=== PATIENT | male | born 1995 | race Caucasian/White ===

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

== ENCOUNTER 2017-04-24 01:14 | Emergency (ER) | payer BC ==
[2017-04-24] MEDS ORDERED: Pantoprazole 40 MG VIAL ONE (01:37)
[2017-04-24] MEDS ORDERED: Lidocaine Viscous Sol 2% 15 ml UD Cup ONE (01:38)
[2017-04-24] MEDS ORDERED: Milk Of Magnesia 30 ML UDCUP ONE (01:38)
[2017-04-24 01:43] LABS: Bilirubin Negative (Negative); Blood, Urine Trace (Negative); Clarity Clear (Clear); Glucose, Urine (Dipstick) 100 mg/dL (Negative); Leukocyte Negative (Negative); Nitrite Negative (Negative); Protein, Urine (Dipstick) Trace mg/dL (Neg-Trace); Specific Gravity, Urine 1.025 (1.005-1.030); Urobilinogen 0.2 mg/dL (0.2-1.0)
[2017-04-24] MEDS ORDERED: Morphine 4 MG/ML Carpuject ONE ×3 (01:51→03:29)
[2017-04-24 01:52] LABS: Hemoglobin 17.9 g/dL (14.0-18.0); Mean Corpuscular HGB CONC 33.9 g/dL (32.0-36.0); Mean Corpuscular Volume 85.4 fl (77.0-87.0); Mean Platelet Volume 6.7 fL (7.4-10.4); Platelet Count 366 thou/uL (130-400); RBC Distribution Width 11.4 % (11.5-14.5); Red Blood Cell (RBC) Count 6.17 mill/uL (4.00-5.20); White Blood Cell (WBC) Count 22.5 thou/uL (4.8-10.8)
[2017-04-24] MEDS ORDERED: diphenhydrAMINE 50 MG/ML VIAL ONE (01:52)
[2017-04-24 01:56] LABS: ALT (SGPT) 57 U/L (8-55); AST (SGOT) 26 U/L (5-34); Albumin 4.5 g/dL (3.5-5.0); Alkaline Phosphatase 78 U/L (Less than 750); Anion Gap 15 mmol/L (10-20); BUN (Urea Nitrogen) 14 mg/dL (8.9-20.6); Bilirubin, Total 0.5 mg/dL (0.2-1.2); Calc. Creatinine Clearance 0 mL/min (70-130); Calcium 9.5 mg/dL (7.8-10.44); Carbon Dioxide 21 mmol/L (22-29); Chloride 106 mmol/L (98-107); Estimated GFR-MDRD Greater than 90; Globulin 3.3 g/dL (2.4-3.5); Glucose 189 mg/dL (70-105); Lipase 10 U/L (8-78); Potassium 4.1 mmol/L (3.5-5.1); Protein, Total 7.8 g/dL (6.0-8.3); Sodium 138 mmol/L (136-145)
[2017-04-24 01:56] LABS: RBC/HPF 0-3 HPF (0-3); Squamous Epithelial 0-3 HPF (0-3); WBC/HPF 0-3 HPF (0-3)
[2017-04-24 01:57] LABS: Bacteria/HPF Rare-Few HPF (None Seen); Other Microscopic Description 1+ MUCUS
[2017-04-24 02:07] LABS: Band 2 % (5-11); Lymphocytes 5 % (28-48); MDiff Complete? YES; Monocytes 4 % (0-4); Neutrophil 89 % (31-61); PLT Morphology Comment Appears Adequate; RBC Morphology Normal
--- NOTE | 2017-04-24 07:40 | CT ---
PRELIMINARY REPORT/[facility]/EMERGENCY AFTER HOURS PROCEDURE: EXAM: CT Abdomen and Pelvis With Intravenous Contrast EXAM DATE/TIME: Exam ordered 04/24/2017 2:39 AM CLINICAL HISTORY: 22 years old, male; Pain; Abdominal pain; Epigastric; Patient HX: Pt presents to the er for abdominal pain; Pt had oral surgery today. Was home eating post-op and took pain medication. States sudden ons et of severe abdominal pain bilat upper quad. ; Additional info: Iv contrast only per er md TECHNIQUE: Axial computed tomography images of the abdomen and pelvis with intravenous contrast. All CT scans at this facility use one or more dose reduction techniques, viz.: automated exposure control; ma/kV adj ustment per patient size (including targeted exams where dose is matched to indication; i.e. head); o r iterative reconstruction technique. Coronal reformatted images were created and reviewed. CONTRAST: 100 mL of ISOVUE 370 administered intravenously. COMPARISON: No relevant prior studies available. FINDINGS: Lower thorax: No acute findings. ABDOMEN: Liver: No pneumatosis or portal/mesenteric venous gas. Gallbladder and bile ducts: Unremarkable. No calcified stones. No ductal dilation. Pancreas: Unremarkable. No mass. No ductal dilation. Spleen: Unremarkable. No splenomegaly. Adrenals: Unremarkable. No mass. Kidneys and ureters: Unremarkable. No solid mass. No hydronephrosis. Stomach and bowel: High-grade mid small bowel obstruction with transition point in the central abdome n, presumably secondary to adhesion. No bowel wall thickening. Appendix: Normal appendix. PELVIS: Bladder: Unremarkable. No mass. Reproductive: Unremarkable as visualized. ABDOMEN and PELVIS: Intraperitoneal space: No pneumoperitoneum or abscess. No significant fluid collection. Bones/joints: No acute fracture. No dislocation. Soft tissues: Unremarkable. Vasculature: SMV and SMA are patent as far as can be traced. Lymph nodes: Unremarkable. No enlarged lymph nodes. IMPRESSION: High-grade mid small bowel obstruction with transition point in the central abdomen, presumably secon jose armando to adhesion. Thank you for allowing us to participate in the care of your patient. Dictated and Authenticated by: Lionel Trivedi MD 04/24/2017 3:05 AM Central Time ([place] & [place]) FINAL REPORT CT ABDOMEN AND PELVIS WITH CONTRAST: DATE: 04/24/17. FINDINGS: Spiral CT of the abdomen and pelvis was performed for evaluation of severe abdominal pain. Axial slic es were acquired after giving IV contrast. Oral contrast was withheld by request. Coronal reconstru ctions were done. The main finding on the study was a stomach full of fluid and dilated loops of small bowel to the mid small bowel level. Some loops are as wide as 4 cm. There is a transition point in the mid abdomen, after which small bowel and large bowel are normal in size. The findings are consistent with a mid small bowel obstruction. No dramatic thickening of the bowel loops was seen. There is no free air or free fluid. The lung bases are clear. The spleen is a little generous in size measuring just over 15 cm in lengt h. The liver appears normal as does the pancreas, adrenal glands, kidneys, and aorta. Both the karen ac, SMA, and DON fill with contrast. CT of the pelvis shows no pelvic masses, inflammatory changes, or fluid collections. IMPRESSION: Findings consistent with a high-grade mid small bowel obstruction. Etiology not apparent. Report in agreement with preliminary reading by [facility]. POS: [facility]
== END 2017-04-24 04:03 | disposition short-term general hospital (02) ==
LOC: BURERS 01:14
DX: K56.609 Unspecified intestinal obstruction, unspecified as to partial versus complete obstruction (principal); Z79.899 Other long term (current) drug therapy
CPT/HCPCS: 74177; 80053; 81003; 81015; 83690; 85025; 93005; 94760; 96361; 96374; 96375; 96376; C9113; J1200; J2270

== ENCOUNTER 2017-12-29 11:55 | Emergency (ER) | payer BC | END 2017-12-29 12:19 | disposition home or self-care (01) | LOC: BURERS 11:55 | DX: K04.7 Periapical abscess without sinus (principal); Z71.6 Tobacco abuse counseling; I10 Essential (primary) hypertension; F17.210 Nicotine dependence, cigarettes, uncomplicated | CPT/HCPCS: 99406 ==

== ENCOUNTER 2018-01-20 15:35 | Emergency (ER) | payer BC ==
[2018-01-20] MEDS ORDERED: predniSONE 20 MG TAB ONE (15:53)
== END 2018-01-20 16:03 | disposition home or self-care (01) ==
LOC: BURERS 15:35
DX: L23.7 Allergic contact dermatitis due to plants, except food (principal); I10 Essential (primary) hypertension; F17.290 Nicotine dependence, other tobacco product, uncomplicated; F17.210 Nicotine dependence, cigarettes, uncomplicated
CPT/HCPCS: 99282; J7506

== ENCOUNTER 2020-05-26 09:01 | Emergency (ER) | payer BC | END 2020-05-26 11:10 | disposition home or self-care (01) | LOC: BURERS 09:01 | DX: J06.9 Acute upper respiratory infection, unspecified (principal); I10 Essential (primary) hypertension; F17.210 Nicotine dependence, cigarettes, uncomplicated | CPT/HCPCS: 99283 ==

== ENCOUNTER 2020-09-20 11:38 | Emergency (ER) | payer BC | END 2020-09-20 12:50 | disposition home or self-care (01) | LOC: BURERS 11:38 | DX: S93.601A Unspecified sprain of right foot, initial encounter (principal); I10 Essential (primary) hypertension; F17.210 Nicotine dependence, cigarettes, uncomplicated; W20.8XXA Other cause of strike by thrown, projected or falling object, initial encounter ==

== ENCOUNTER 2021-05-04 11:30 | Emergency (ER) | payer BC ==
[2021-05-04] MEDS ORDERED: Boostrix 0.5 ML (Tdap) VIAL ONE (11:57)
[2021-05-04] MEDS ORDERED: Ibuprofen 800 MG TAB ONE (12:07)
== END 2021-05-04 12:11 | disposition home or self-care (01) ==
LOC: BURERS 11:30
DX: S20.222A Contusion of left back wall of thorax, initial encounter (principal); S50.812A Abrasion of left forearm, initial encounter; I10 Essential (primary) hypertension; F17.210 Nicotine dependence, cigarettes, uncomplicated; Y04.0XXA Assault by unarmed brawl or fight, initial encounter
CPT/HCPCS: 90471; 90715